=== PATIENT | female | born 1990 | race Caucasian/White ===

== ENCOUNTER 2019-08-21 11:15 | Outpatient (CLI) | payer OTHER, SELFPAY ==
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
== END 2019-08-21 11:16 | disposition home or self-care (01) ==
LOC: RAD 11:16
PROVIDERS: Family Provider Family Medicine; PCP Family Medicine; Visit Provider Surgery Surgery of the Hand
DX: S68.011D Complete traumatic metacarpophalangeal amputation of right thumb, subsequent encounter (principal); X58.XXXD Exposure to other specified factors, subsequent encounter
CPT/HCPCS: 73130

== ENCOUNTER 2019-12-15 16:30 | Outpatient (CLI) | payer OTHER, SELFPAY ==
--- NOTE | 2019-12-15 | XRR_ITS ---
PROCEDURE INFORMATION: Exam: XR Right Finger(s) Exam date and time: 12/15/2019 5:14 PM Age: 29 years old Clinical indication: Other: Just had screws removed; Prior surgery; Surgery date: 3-7 days post-operative; Additional info: Pain TECHNIQUE: Imaging protocol: XR Right fingers. Views: Minimum 2 views. COMPARISON: CR Finger RIGHT [id number] 03/27/2019 8:09 AM FINDINGS: Bones/joints: Previous amputation of the right pollex. Compression plate and screw fixation device of the 1st metacarpal with evidence of progression of healing since study of 03/27/2019. Remaining screws appear intact. The plate has been placed since study of 03/27/2019 with no interval images available for review. Incomplete union of the mid metacarpal diaphysis. Mild radial bowing. No acute osseous abnormality. Soft tissues: Normal. XR/XR finger RT min 2V [id number] IMPRESSION: 1. Right 1st metacarpal osteotomy as detailed in text above. 2. Compression plate and screw fixation device appears stable. 3. Status post amputation of the right pollex.
== END 2019-12-15 16:31 | disposition home or self-care (01) ==
LOC: RAD 16:32
PROVIDERS: Family Provider Family Medicine; PCP Family Medicine; Visit Provider Surgery Surgery of the Hand
DX: M79.644 Pain in right finger(s) (principal); S68.011D Complete traumatic metacarpophalangeal amputation of right thumb, subsequent encounter; X58.XXXD Exposure to other specified factors, subsequent encounter
CPT/HCPCS: 73140

== ENCOUNTER → 2020-11-20 10:49 | Outpatient (BNVA) | payer OTHER, SELFPAY | PROVIDERS: Family Provider Family Medicine; PCP Family Medicine; Visit Provider Nurse Practitioner Family | DX: K29.60 Other gastritis without bleeding (principal) | CPT/HCPCS: 87635 ==

== ENCOUNTER 2021-06-13 13:30 | Emergency (ER) | payer MEDICAID, SELFPAY ==
[2021-06-13 13:51] VITALS: BP 108/75; PULSE 109; RESP 18; TEMP 36.8; O2SAT 98; BMI 24.9
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
[2021-06-13 15:29] LABS: Basophils % 0.2 %; Hematocrit 45.3 % (37.0-47.0); Hemoglobin 15.3 g/dL (11.5-15.3); Lymphocytes # 2.3 10^3/uL (0.8-4.8); Lymphocytes % 16.1 %; Mean Corpuscular HGB Conc 33.8 g/dL (30.0-36.0); Mean Corpuscular Hemoglobin 29.5 pg (28.0-34.0); Mean Corpuscular Volume 87.5 fl (81-99); Mean Platelet Volume 10.7 fL (7.4-10.4); Monocytes # 1.1 10^3/uL (0.2-0.9); Monocytes % 7.8 %; Neutrophils # 10.94 10^3/uL (1.8-7.7); Neutrophils % 75.4 %; Nucleated Red Blood Cells % 0 %; Platelet Count 479 10^3/cmm (130-400); Red Blood Count 5.18 10^6/uL (4.1-5.3); Red Cell Distribution Width 12.4 % (12.1-15.1); White Blood Count 14.5 10^3/uL (4.0-10.0)
[2021-06-13 15:55] LABS: Alanine Aminotransferase 59 U/L (0-33); Albumin Level 4.3 g/dL (3.5-5.2); Alkaline Phosphatase 59 IU/L (35-105); Anion Gap 19.4 (5-19); Aspartate Amino Transferase 31 U/L (0-32); Blood Urea Nitrogen 10 mg/dL (6-20); Calcium 10.3 mg/dL (8.5-10.5); Carbon Dioxide 19 mmol/L (22-29); Chloride 104 mmol/L (98-107); Creatinine Clr Calc Pharmacy 150.7774; Globulin 3.8 g/dL (1.3-4.6); Glucose 106 mg/dL (65-115); Osmolality Calculated 287 mOsm/kg (285-295); Potassium 3.4 mmol/L (3.5-5.1); Sodium 139 mmol/L (136-145); Total Bilirubin 0.3 mg/dL (0.15-1.2); Total Protein 8.1 g/dL (6.6-8.7)
[2021-06-13] MEDS: sodium chloride 0.9% 1,000 ML 999 ML IV (16:15)
[2021-06-13] MEDS: acetaminophen 500 mg Tablet 1000 MG PO (16:16)
[2021-06-13] MEDS: ondansetron 2 mg/ML SDV 2 mL 4 MG IVP (16:16)
[2021-06-13 17:13] LABS: HCG Qualitative Urine. Negative (Negative)
[2021-06-13 17:41] LABS: Add Urine Microscopic? YES; Bilirubin Urine Neg (Negative); Blood Urine 3+ (Negative); Glucose Urine UA Norm (Normal); Ketones Urine Negative (Negative); Leukocyte Esterase Urine Negative (Negative); Nitrate Urine Negative (Negative); Protein Urine Neg (Negative); Specific Gravity, Urine 1.015 (1.005-1.030); Urine Appearance Clear (CLEAR); Urine Color Yellow (Yellow); Urobilinogen Urine Neg (Negative); pH Urine 6.5 (5-7)
[2021-06-13 17:45] VITALS: RESP 16; O2SAT 100
[2021-06-13] MEDS: oxyCODONE 5 mg IR Tab/Cap PO (17:45)
[2021-06-13 17:48] VITALS: BP 150/78; PULSE 88; RESP 16; TEMP 36.7; O2SAT 98
[2021-06-13 17:50] LABS: Add Urine Culture? Yes; Amorphous Sediment Urine TRACE /hpf; Mucus Urine TRACE /hpf; Squamous Epithelial Cell Urine 0-4 /hpf (0-5); WBC Urine RARE /hpf (0-5)
--- NOTE | 2021-06-13 18:16 | PC.NURSE ---
DISCHARGED PATIENT TO HOME, PATIENT VERBALIZED UNDERSTANDING OF ALL INSTRUCTIONS, PRESCRIPTIONS AND FOLLOW UP, PATIENT HAS SPLINT IN PLACE ON RIGHT ANKLE AND WAS TAKEN TO LOBBY PER HER PERSONAL WC
--- NOTE | 2021-06-16 10:12 | DCPLANNER ---
Addendum entered by Marcella Louis 06/20/21 06:33: Patient had a follow up appointment scheduled for 06.17.[address] Rock at ortho - patient did attend appointment. Original Note: manager plant had message to schedule a follow up appointment for patient with ortho. manager plant called the ortho clinic, spoke with Cely, gave clinic patients information. manager plant was told that patients information would be printed and reviewed. Clinic will call patient with appointment information.
== END 2021-06-13 18:42 | disposition home or self-care (01) ==
PROVIDERS: Nurse Practitioner Family; Emergency Provider Physician Assistant; PCP Family Medicine
DX: S92.154A Nondisplaced avulsion fracture (chip fracture) of right talus, initial encounter for closed fracture (principal); F17.210 Nicotine dependence, cigarettes, uncomplicated; V89.2XXA Person injured in unspecified motor-vehicle accident, traffic, initial encounter
CPT/HCPCS: 29515; 36415; 71045; 73090; 73610; 80053; 81001; 81025; 85025; 87086; 96361; 96374; 99284; J2405; J7030

== ENCOUNTER 2021-06-17 16:05 | Outpatient (CLI) | payer MEDICAID, SELFPAY | END 2021-06-17 16:06 | disposition home or self-care (01) | LOC: SPT 16:06 | PROVIDERS: PCP Family Medicine; Visit Provider Podiatrist Foot & Ankle Surgery | DX: Z46.89 Encounter for fitting and adjustment of other specified devices (principal); S92.151D Displaced avulsion fracture (chip fracture) of right talus, subsequent encounter for fracture with routine healing; X58.XXXD Exposure to other specified factors, subsequent encounter | CPT/HCPCS: 97760; L4361 ==

== ENCOUNTER → 2023-04-09 13:48 | Outpatient (BNVA) | payer MEDICAID, SELFPAY | PROVIDERS: PCP Family Medicine; Visit Provider Nurse Practitioner | DX: R39.9 Unspecified symptoms and signs involving the genitourinary system (principal); Z20.2 Contact with and (suspected) exposure to infections with a predominantly sexual mode of transmission; N30.01 Acute cystitis with hematuria | CPT/HCPCS: 81000; 87491; 87591; 87661 ==

== ENCOUNTER → 2023-04-30 12:30 | Outpatient (BNVA) | payer MEDICAID, SELFPAY | PROVIDERS: PCP Family Medicine; Visit Provider Nurse Practitioner | DX: R39.9 Unspecified symptoms and signs involving the genitourinary system (principal); Z20.2 Contact with and (suspected) exposure to infections with a predominantly sexual mode of transmission | CPT/HCPCS: 87491; 87591 ==

== ENCOUNTER → 2024-06-22 12:55 | Outpatient (BNVA) | payer OTHER, MEDICAID, SELFPAY | PROVIDERS: PCP Family Medicine; Visit Provider Nurse Practitioner Women's Health | DX: Z30.433 Encounter for removal and reinsertion of intrauterine contraceptive device (principal) | CPT/HCPCS: 81025 ==

== ENCOUNTER → 2024-10-29 11:11 | Outpatient (BNVA) | payer MEDICAID, SELFPAY | PROVIDERS: Visit Provider Registered Nurse Neonatal Intensive Care | DX: R39.9 Unspecified symptoms and signs involving the genitourinary system (principal) | CPT/HCPCS: 81000 ==

== ENCOUNTER → 2024-12-20 16:02 | Outpatient (BNVA) | payer OTHER, MEDICAID, SELFPAY | PROVIDERS: Visit Provider Nurse Practitioner | DX: Z20.2 Contact with and (suspected) exposure to infections with a predominantly sexual mode of transmission (principal) | CPT/HCPCS: 87491; 87591; 87661 ==